=== PATIENT | female | born 1950 | race African-American/Black ===

== ENCOUNTER → 2017-12-27 | Outpatient (CLI) | payer BC ==
[2015-01-09 19:05] VITALS: BP 139/69
[~2017-12-27] MED LIST: CARV12.52 PO; CITA10TA4 PO; HYDR25TA9 PO; LEVO500T59 PO; LISI-338 PO; METR500T8 PO; TRAM50TA PO
--- NOTE | 2017-12-27 15:24 | KCIC ---
EXAM: Bilateral knees, 3 views. HISTORY: Pain. COMPARISON: None. FINDINGS: 3 views of the bilateral knees are obtained. There is severe left greater than right medial compartment predominant joint space narrowing with subchondral sclerosis and osteophytosis. There is mild bilateral lateral and patellofemoral compartment spurring. There is mild left genu varus. There is no joint effusion. There is a large joint loose body inferior to the left patella. IMPRESSION: 1. Severe left greater than right medial compartment osteoarthritis of both knees with mild left genu varus and a large left joint loose body. 2. No acute osseous finding. Electronically signed by: Michelle Martinez MD (12/27/2017 3:20 PM) [facility]
--- NOTE | 2017-12-27 16:11 | KCIC ---
EXAM: Bilateral knees, 3 views. HISTORY: Pain. COMPARISON: None. FINDINGS: 3 views of the bilateral knees are obtained. There is severe left greater than right medial compartment predominant joint space narrowing with subchondral sclerosis and osteophytosis. There is mild bilateral lateral and patellofemoral compartment spurring. There is mild left genu varus. There is no joint effusion. There is a large joint loose body inferior to the left patella. IMPRESSION: 1. Severe left greater than right medial compartment osteoarthritis of both knees with mild left genu varus and a large left joint loose body. 2. No acute osseous finding. Electronically signed by: Michelle Martinez MD (12/27/2017 3:20 PM) [facility] DICTATED and SIGNED BY: MICHELLE MARTINEZ MD DATE: 12/27/17 1519 MTDD
== END | disposition home or self-care (01) ==
LOC: KCIC 13:37
PROVIDERS: ATTEND Family Medicine
DX: M17.0 Bilateral primary osteoarthritis of knee (principal); M21.162 Varus deformity, not elsewhere classified, left knee; Z86.2 Personal history of diseases of the blood and blood-forming organs and certain disorders involving the immune mechanism; Z87.19 Personal history of other diseases of the digestive system
CPT/HCPCS: 73562

== ENCOUNTER 2019-01-17 14:50 | Emergency (ER) | payer BC ==
[~2019-01-17] VITALS: Ht 160 cm; Wt 116.1 kg
[~2019-01-17 14:50] MED LIST changes: +CARV12.511 PO; -CARV12.52 PO; +HYDR-2145 PO; -HYDR25TA9 PO; +METR-34 PO; -METR500T8 PO
[2019-01-17] MEDS ORDERED: IV NORMAL SALINE 1000ML BAG 1,000 ML IV SCH (15:20)
--- NOTE | 2019-01-17 15:27 | PHYS DOC ---
Past Medical History Past Medical History: Anxiety, Hypertension, Other Additional Past Medical Histor: "stress", chronic knee pain Past Surgical History: Other Additional Past Surgical Histo: HERNIA REPAIR,COLON RESECTION,BOWEL RESECTION, L KIDNEY REMOVAL Alcohol Use: None Drug Use: None Adult General Chief Complaint Chief Complaint: DIZZY/LIGHT HEADED HPI HPI Patient is a 68-year-old female who presents to the emergency department for evaluation. She appears younger than her stated age. She states that she came to the emergency department today for dizziness, described both as a lightheadedness, as well as a sensation of the room spinning. She states the symptoms began after taking tramadol, 350 mg tablets at the same time, for the third day in a row, due to an increase in her left knee pain, which is chronic for her. She denies any new injury, and denies any headache, vision changes, numbness, weakness, incoordination, nausea, vomiting, chest pain, or shortness of breath. There are no alleviating or exacerbating factors to her symptoms. Review of Systems Review of Systems Constitutional: Denies fever or chills [] Eyes: Denies change in visual acuity, redness, or eye pain [] HENT: Denies nasal congestion or sore throat. Denies otalgia, hearing changes, or tinnitus. [] Respiratory: Denies cough or shortness of breath [] Cardiovascular: The patient denies any shortness of breath, chest pain, palpitations, or orthopnea [] GI: Denies abdominal pain, nausea, vomiting, bloody stools or diarrhea [] : Denies dysuria or hematuria [] Musculoskeletal: Denies back pain or joint pain, other than her left knee pain [] Integument: Denies rash or skin lesions [] Neurologic: Denies headache, focal weakness or sensory changes [] Endocrine: Denies polyuria or polydipsia [] All other systems were reviewed and found to be within normal limits, except as documented in this note. Current Medications Current Medications Current Medications Medications (Trade) Dose Ordered Sig/Shen Start Time Stop Time Status Last Admin Dose Admin Meclizine HCl (Antivert) 25 mg 1X ONCE 01/17/19 16:45 01/17/19 16:46 DC 01/17/19 16:50 25 MG Ondansetron HCl (Zofran) 4 mg 1X ONCE 01/17/19 16:45 01/17/19 16:46 DC 01/17/19 16:46 4 MG Sodium Chloride 1,000 ml @ 1,000 mls/hr Q1H 01/17/19 15:20 01/17/19 16:19 DC 01/17/19 16:04 1,000 MLS/HR Allergies Allergies Allergies Coded Allergies Type Severity Reaction Last Updated Verified lisinopril Allergy Severe Swelling 07/29/14 Yes tramadol Adverse Reaction Mild Nausea, drowsiness 07/29/14 No Physical Exam Physical Exam PHYSICAL EXAM: CONSTITUTIONAL: Well developed, well nourished HEAD: normocephalic, atraumatic EENT: PERRL, EOMI. Conjunctivae normal color, sclerae non-icteric; moist mucous membranes. There is no nystagmus. NECK: Supple, non-tender; no meningismus. LUNGS: Lungs CTA, breathing even and unlabored. Normal air movement. HEART: Regular rate and rhythm, no murmur CHEST: No deformity; non-tender ABDOMEN: The abdomen is soft, and non-tender, no masses or bruits. EXTREM: Normal ROM; no deformity, no calf tenderness. Normal pulses palpable in all extremities. There is no pedal edema. SKIN: No rash; no diaphoresis NEURO: Alert; normal speech and cognition; CN's grossly intact; strength grossly intact without focal deficit. Sensation is intact and symmetrical in all extremities. Visual nguyen are intact by confrontation. Kssygb-imnp-ignonc and heel murillo testing is normal. NIH stroke scale score is 0. BACK: No CVA TTP. Current Patient Data Vital Signs Vital Signs Date Time Temp Pulse Resp B/P (MAP) Pulse Ox O2 Delivery O2 Flow Rate FiO2 01/17/19 15:17 97.9 54 16 178/79 (112) 97 Room Air 97.9 Lab Values Laboratory Tests Test 01/17/19 15:12 01/17/19 16:00 01/17/19 16:55 Urine Collection Type Void Urine Color Yellow Urine Clarity Clear Urine pH 5.5 Urine Specific [place] 1.015 Urine Protein 30 mg/dL (NEG-TRACE) Urine Glucose (UA) Negative mg/dL (NEG) Urine Ketones (Stick) Negative mg/dL (NEG) Urine Blood Negative (NEG) Urine Nitrite Negative (NEG) Urine Bilirubin Negative (NEG) Urine Urobilinogen Dipstick 0.2 mg/dL (0.2 mg/dL) Urine Leukocyte Esterase Negative (NEG) Urine RBC Rare /HPF (0-2) Urine WBC Rare /HPF (0-4) Urine Squamous Epithelial Cells Mod /LPF Urine Bacteria Few /HPF (0-FEW) White Blood Count 11.3 x10^3/uL (4.0-11.0) H Red Blood Count 4.36 x10^6/uL (3.50-5.40) Hemoglobin 11.3 g/dL (12.0-15.5) L Hematocrit 36.1 % (36.0-47.0) Mean Corpuscular Volume 83 fL (79-100) Mean Corpuscular Hemoglobin 26 pg (25-35) Mean Corpuscular Hemoglobin Concent 31 g/dL (31-37) Red Cell Distribution Width 15.0 % (11.5-14.5) H Platelet Count 323 x10^3/uL (140-400) Neutrophils (%) (Auto) 81 % (31-73) H Lymphocytes (%) (Auto) 11 % (24-48) L Monocytes (%) (Auto) 7 % (0-9) Eosinophils (%) (Auto) 1 % (0-3) Basophils (%) (Auto) 1 % (0-3) Neutrophils # (Auto) 9.2 x10^3/uL (1.8-7.7) H Lymphocytes # (Auto) 1.2 x10^3/uL (1.0-4.8) Monocytes # (Auto) 0.7 x10^3/uL (0.0-1.1) Eosinophils # (Auto) 0.1 x10^3/uL (0.0-0.7) Basophils # (Auto) 0.1 x10^3/uL (0.0-0.2) Lactic Acid Level 0.8 mmol/L (0.4-2.0) Sodium Level 145 mmol/L (136-145) Potassium Level 4.7 mmol/L (3.5-5.1) Chloride Level 112 mmol/L (98-107) H Carbon Dioxide Level 23 mmol/L (21-32) Anion Gap 10 (6-14) Blood Urea Nitrogen 28 mg/dL (7-20) H Creatinine 2.2 mg/dL (0.6-1.0) H Estimated GFR (Cockcroft-Gault) 26.7 BUN/Creatinine Ratio 13 (6-20) Glucose Level 102 mg/dL (70-99) H Calcium Level 8.8 mg/dL (8.5-10.1) Total Bilirubin 0.2 mg/dL (0.2-1.0) Aspartate Amino Transferase (AST) 8 U/L (15-37) L Alanine Aminotransferase (ALT) 14 U/L (14-59) Alkaline Phosphatase 73 U/L (46-116) Troponin I Quantitative < 0.017 ng/mL (0.000-0.055) Total Protein 7.4 g/dL (6.4-8.2) Albumin 3.6 g/dL (3.4-5.0) Albumin/Globulin Ratio 0.9 (1.0-1.7) L Laboratory Tests 01/17/19 16:00 Laboratory Tests 01/17/19 16:55 EKG EKG []Normal sinus rhythm a rate of 55 beats for minute, left axis deviation, normal intervals, lateral T wave inversion without acute ischemic ST/T changes. Lateral T wave inversion was present on the patient's prior EKG from 2013, although appears more progressed on today's EKG, no EKGs performed more recently are available. Radiology/Procedures Radiology/Procedures PROCEDURE: CT HEAD WO CONTRAST EXAM: CT HEAD WITHOUT CONTRAST. HISTORY: Dizziness. TECHNIQUE: Computed tomography of the head was performed without intravenous contrast. *One or more of the following individualized dose reduction techniques were utilized for this examination: 1. Automated exposure control. 2. Adjustment of the mA and/or kV according to patient size. 3. Use of iterative reconstruction technique. COMPARISON: None. FINDINGS: There is no intracranial hemorrhage. Hypoattenuation within the periventricular white matter indicates mild chronic microangiopathic change. The ventricles are normal in size and position. The visualized paranasal sinuses appear clear. The orbits are unremarkable. The temporal bones are unremarkable. The calvarium reveals no suspicious lesions. There are atherosclerotic calcifications of the internal carotid arteries. IMPRESSION: 1. No acute intracranial findings. 2. Mild chronic microangiopathic white matter change. [] Course & Med Decision Making Course & Med Decision Making Pertinent Labs and Imaging studies reviewed. (See chart for details) [] 5:45 PM: The patient's condition remains stable. Her renal insufficiency does not appear to be a new problem for the patient. She is ambulatory, and stable on her feet and is feeling significantly better. I discussed test results in detail with the patient, the need for close PCP follow-up in comparison with her prior blood tests to determine her baseline kidney function more recently, and return precautions were discussed in detail. I also discussed limiting her use of tramadol to once up to twice per day, and avoiding NSAIDs given her renal insufficiency. Dragon Disclaimer Dragon Disclaimer This electronic medical record was generated, in whole or in part, using a voice recognition dictation system. Departure Departure Impression: Primary Impression: Dizziness Disposition: HOME, SELF-CARE Condition: STABLE Referrals: MIRIAM MEHTA MD (PCP) Patient Instructions: Dizziness Scripts Meclizine Hcl (MECLIZINE HCL) 25 Mg Tablet 1 TAB PO PRN TID PRN for dizziness, #20 TAB Prov: MELANIE DOUGLASS MD 01/17/19 MELANIE DOUGLASS MD Jan 17, 2019 15:26
[2019-01-17 15:31] LABS: BILIRUBIN,URINE NEGATIVE (NEG); CLARITY,URINE CLEAR; COLOR,URINE YELLOW; NITRITE,URINE NEGATIVE (NEG); PH,URINE 5.5; PROTEIN,URINE 30 mg/dL (NEG-TRACE); UROBILINOGEN,URINE 0.2 mg/dL (0.2 mg/dL)
[2019-01-17 15:39] LABS: BACTERIA,URINE FEW /HPF (0-FEW); RBC,URINE RARE /HPF (0-2); SQUAMOUS EPITHELIAL CELL,UR MOD /LPF; WBC,URINE RARE /HPF (0-4)
[2019-01-17 16:17] LABS: BASO # 0.1 x10^3/uL (0.0-0.2); BASO % 1 % (0-3); EOS # 0.1 x10^3/uL (0.0-0.7); EOS % 1 % (0-3); HEMATOCRIT 36.1 % (36.0-47.0); HEMOGLOBIN 11.3 g/dL (12.0-15.5); LYMPH # 1.2 x10^3/uL (1.0-4.8); LYMPH % 11 % (24-48); MEAN CORPUSCULAR HEMOGLOBIN 26 pg (25-35); MEAN CORPUSCULAR HGB CONC 31 g/dL (31-37); MEAN CORPUSCULAR VOLUME 83 fL (79-100); MONO # 0.7 x10^3/uL (0.0-1.1); MONO % 7 % (0-9); NEUT # 9.2 x10^3/uL (1.8-7.7); NEUT % 81 % (31-73); PLATELET COUNT 323 x10^3/uL (140-400); RED BLOOD COUNT 4.36 x10^6/uL (3.50-5.40); WHITE BLOOD COUNT 11.3 x10^3/uL (4.0-11.0)
--- NOTE | 2019-01-17 16:24 | EKG ---
[facility] [address] [place] [address] Test Date: 2019-01-17 Test Time: 15:31:36 Pat Name: ESTEPHANIA HAWLEY Department: Room: Gender: F Accounting Consultant: : 1950 Requested By: MELANIE DOUGLASS Order Number: [id number] Reading MD: Trever Monson MD Measurements Intervals [place] Rate: 55 P: 0 NE: 172 QRS: -33 QRSD: 94 T: -67 QT: 448 QTc: 431 Interpretive Statements SINUS RHYTHM LVH NON-SPECIFIC ST/T CHANGES Electronically Signed On 01-31-2019 8:50:50 PANEL INSTRUMENT REPAIRER by Trever Monson MD
[2019-01-17] MEDS ORDERED: ONDANSETRON PF 4 MG/2 ML VIAL. IV ONE (16:45)
[2019-01-17] MEDS ORDERED: MECLIZINE HCL 12.5 MG TABLET. PO ONE (16:45)
--- NOTE | 2019-01-17 16:48 | RAD ---
EXAM: CT HEAD WITHOUT CONTRAST. HISTORY: Dizziness. TECHNIQUE: Computed tomography of the head was performed without intravenous contrast. *One or more of the following individualized dose reduction techniques were utilized for this examination: 1. Automated exposure control. 2. Adjustment of the mA and/or kV according to patient size. 3. Use of iterative reconstruction technique. COMPARISON: None. FINDINGS: There is no intracranial hemorrhage. Hypoattenuation within the periventricular white matter indicates mild chronic microangiopathic change. The ventricles are normal in size and position. The visualized paranasal sinuses appear clear. The orbits are unremarkable. The temporal bones are unremarkable. The calvarium reveals no suspicious lesions. There are atherosclerotic calcifications of the internal carotid arteries. IMPRESSION: 1. No acute intracranial findings. 2. Mild chronic microangiopathic white matter change. Electronically signed by: Yang Goddard MD (01/17/2019 4:45 PM) [facility]
[2019-01-17 17:15] LABS: CALCIUM 8.8 mg/dL (8.5-10.1); CREATININE 2.2 mg/dL (0.6-1.0); GFR 26.7; POTASSIUM 4.7 mmol/L (3.5-5.1)
[2019-01-17 17:21] LABS: ALBUMIN 3.6 g/dL (3.4-5.0); ALBUMIN/GLOBULIN RATIO 0.9 (1.0-1.7); TOTAL BILIRUBIN 0.2 mg/dL (0.2-1.0); TOTAL PROTEIN 7.4 g/dL (6.4-8.2)
[2019-01-17] MEDS ORDERED: MECL25TA3 PO (17:48)
[2019-01-17 18:00] VITALS: BP 135/72
== END 2019-01-17 18:00 | disposition home or self-care (01) ==
LOC: ER 14:50
DX: R42 Dizziness and giddiness (principal); M25.562 Pain in left knee; I10 Essential (primary) hypertension; Z88.6 Allergy status to analgesic agent; Z88.8 Allergy status to other drugs, medicaments and biological substances
CPT/HCPCS: 36415; 70450; 80053; 81001; 83605; 84484; 85025; 93005; 96361; 96374; 99285; J2405; J7030; J8597

== ENCOUNTER → 2020-08-06 | Outpatient (CLI) | payer BC ==
[~2020-08-06] MED LIST changes: -LISI-338 PO; +LISI-517 PO; +MECL-75 PO
--- NOTE | 2020-08-06 13:17 | KCIC ---
INDICATION: Reason: CKD STAGE 4 / Spl. Instructions: / History: COMPARISON: July 2014 TECHNIQUE: Grayscale and color ultrasound images obtained of the bilateral kidneys and bladder. FINDINGS: Right Kidney: 104 mm. No hydronephrosis. 17 mm cystic lesion with echogenic rim. Echogenic cortex. Left Kidney: Removed Bladder: 21 cc prevoid. IMPRESSION: * Post left nephrectomy with echogenic right kidney which can be seen with chronic medical renal dis ease. No right-sided hydronephrosis. * Cystic lesion of the right kidney with echogenic rim. Low-level internal echoes within which could be artifactual in nature but cannot exclude some mild internal complexity. This appears slightly inc reased from prior MR. Electronically signed by: Colin Marcano MD (08/06/2020 1:15 PM) [id number]
== END ==
LOC: KCIC US 10:47
PROVIDERS: ATTEND Nurse Practitioner Family
DX: N18.4 Chronic kidney disease, stage 4 (severe) (principal)
CPT/HCPCS: 76770

== ENCOUNTER 2021-04-14 11:40 | Emergency (ER) | payer BC ==
[~2021-04-14] VITALS: Ht 160 cm; Wt 103.5 kg
[~2021-04-14 11:40] MED LIST changes: -CITA10TA4 PO; +CITA10TA5 PO; -LISI-517 PO; +LISI5TAB15 PO
--- NOTE | 2021-04-14 12:17 | ED.ADGEN ---
Past Medical History Past Medical History: Anxiety, Hypertension, Other Additional Past Medical Histor: "stress", chronic knee pain Past Surgical History: No Surgical History Additional Past Surgical Histo: HERNIA REPAIR,COLON RESECTION,BOWEL RESECTION, L KIDNEY REMOVAL Smoking Status: Never Smoker Alcohol Use: None Drug Use: None General Adult EDM: Chief Complaint: VAGINAL PROBLEM HPI: HPI: Patient is a 70 year old female coming in for 3 to 4 weeks of vaginal irritation and white discharge. Patient denies any recent antibiotics use or vaginal bleeding. Patient has not seen her primary care provider or tried any nyis-ijq-klibnbc treatments. Denies any history of prior yeast infection or STI Review of Systems: Review of Systems: All other systems within normal limits except for as noted in the HPI Allergies: Allergies: Allergies Coded Allergies Type Severity Reaction Last Updated Verified lisinopril Allergy Severe Swelling 04/14/21 Yes tramadol Adverse Reaction Mild Nausea, drowsiness 04/14/21 No Physical Exam: PE: Constitutional: Well developed, well nourished, no acute distress, non-toxic appearance. [] HENT: Normocephalic, atraumatic, bilateral external ears normal, nose normal. [] Eyes: PERRLA, conjunctiva normal, no discharge. [] Neck: No rigidity, supple, no stridor. [] Cardiovascular: Regular rate and rhythm, brisk cap refill [] Lungs & Thorax: Non labored symmetric respirations, no tachypnea or respiratory distress [] Abdomen: Soft, nondistended. Skin: Warm, dry, no erythema, no rash. [] Back: Unremarkable : No ulcerations or discharge. Erythema consistent with tinea Extremities: No deformities, range of motion grossly intact, no lower extremity edema [] Neurologic: Alert and oriented X 3, no focal deficits noted. [] Psychologic: Affect normal, judgement normal, mood normal. [] Current Patient Data: Labs: Microbiology 04/14/21 Wet Prep - Final, Complete Vital Signs: Vital Signs Date Time Temp Pulse Resp B/P (MAP) Pulse Ox O2 Delivery O2 Flow Rate FiO2 04/14/21 11:49 98.4 64 24 148/76 (100) 96 Room Air 98.4 EKG: EKG: [] Heart Score: C/O Chest Pain: No Risk Factors: Risk Factors: DM, Current or recent (<one month) smoker, HTN, HLP, family history of CAD, obesity. Risk Scores: Score 0 - 3: 2.5% MACE over next 6 weeks - Discharge Home Score 4 - 6: 20.3% MACE over next 6 weeks - Admit for Clinical Observation Score 7 - 10: 72.7% MACE over next 6 weeks - Early Invasive Strategies Radiology/Procedures: Radiology/Procedures: [] Course & Med Decision Making: Course & Med Decision Making RUN DATE: 04/14/21 [facility] *LIVE* PAGE 1 RUN TIME: 1231 Specimen Inquiry PATIENT: ESTEPHANIA HAWLEY ACCT: [id number] LOC: [facility] U: [id number] AGE/SX: 70/F ROOM: RE04/14/[address]: EDITH TOURE MD : 1950 BED: DIS: STATUS: REG ER TLOC: SPEC #: [id number] MANDO: 04/14/21-1200 STATUS: SUNSHINE VILLATORO #: [id number] RECD: 04/14/21-[address]: EDITH TOURE MD SOURCE: VAGINAL ENTR: 04/14/21-1214 [facility] DR: NO PCP [facility]: ORDERED: WET PREP COMMENTS: Has specimen been collected/obtained? Y Procedure Result WET PREP Final YEAST NONE SEEN TRICHOMONAS NONE SEEN CLUE CELLS CLUE CELLS PRESENT ALTERED GABRIEL ALTERED GABRIEL PRESENT SUGGESTIVE OF BACTERIAL VAGINOSIS WBCS FEW SQUAMOUS EPS MANY Stevenson Disclaimer: Stevenson Disclaimer: This electronic medical record was generated, in whole or in part, using a voice recognition dictation system. Departure Departure Impression: Primary Impression: Bacterial vaginosis Disposition: HOME / SELF CARE / HOMELESS Condition: STABLE Referrals: NO PCP (PCP) Patient Instructions: Bacterial Vaginosis, Rlwf-ss-[id number] Scripts Clotrimazole (CLOTRIMAZOLE) 15 Gm Cream..g. 1 GILDA TP TID for yeast infection, #45 GM Prov: EDITH TOURE MD 04/14/21 Metronidazole (METRONIDAZOLE) 500 Mg Tablet 1 TAB PO BID for antibiotic for 7 Days, #14 TAB 0 Refills Prov: EDITH TOURE MD 04/14/21 EDITH TOURE MD Apr 14, 2021 12:17
[2021-04-14 12:36] LABS: BILIRUBIN,URINE NEGATIVE (NEG); CLARITY,URINE CLEAR; COLOR,URINE YELLOW; NITRITE,URINE NEGATIVE (NEG); PROTEIN,URINE >=300 mg/dL (NEG-TRACE); UROBILINOGEN,URINE 0.2 mg/dL (0.2 mg/dL)
[2021-04-14] MEDS ORDERED: CLOT15CR23 TP (12:55)
[2021-04-14] MEDS ORDERED: METR-34 PO (12:55)
[2021-04-14 13:02] LABS: BACTERIA,URINE FEW /HPF (0-FEW); RBC,URINE OCC /HPF (0-2)
[2021-04-14 13:30] VITALS: BP 143/86
[2021-04-15 18:10] LABS: GC PROBE Negative (Negative)
== END 2021-04-14 13:30 | disposition home or self-care (01) ==
LOC: ER 11:40
DX: N76.0 Acute vaginitis (principal); B96.89 Other specified bacterial agents as the cause of diseases classified elsewhere; I10 Essential (primary) hypertension; G89.29 Other chronic pain; Z88.8 Allergy status to other drugs, medicaments and biological substances
CPT/HCPCS: 81001; 87086; 87491; 87591; 99283; Q0111